=== PATIENT | male | born 1945 | race Caucasian/White ===

== ENCOUNTER 2017-02-28 21:26 | Observation (INO) | payer MEDICARE, BC ==
[~2017-02-28] VITALS: Ht 185.4 cm; Wt 94.1 kg
--- NOTE | ~2017-02-28 | PRO ---
PATIENT:ISRAEL JAMES MEDICAL RECORD: [id number] : 47 LOCATION:D.M2 D.2132 ADMISSION DATE: 02/28/17 PROCEDURE PERFORMED BY: NATHALIA ESPAÑA MD DATE OF PROCEDURE: 03/01/17 PROCEDURES: 1. PTCA and stent of the RCA. 2. Left heart catheterization. 3. Selective coronary angiography. 4. Left ventriculogram. INDICATIONS: Non Q wave myocardial infarction. PROCEDURE IN DETAIL: After informed consent was obtained and after detailed explanation of risks, benefits as well as alternative therapies, the patient elected to proceed with angiogram and angioplasty. The right radial area was prepped and draped in normal sterile fashion. The right radial artery was cannulated via modified Seldinger technique with placement of 6-Andorran sheath. All catheters exchanged through this sheath. FINDINGS: Left ventricular size is within normal limits. Left ventricular systolic function is preserved at 50%. Selective coronary angiography: 1. Left main showed no significant angiographic disease. 2. Left anterior descending artery has a 95% stenosis proximally and a 95% stenosis in the mid vessel. 3. Left circumflex has irregularities, but no significant stenosis. 4. Right coronary artery has a 95-99% stenosis in the mid vessel. PTCA STENT OF THE RIGHT CORONARY: This lesion was a 4.0 vessel at 20 millimeters long, DAYA grade 2 flow initially. It was addressed with a 4.0 x 24 millimeter BioFreedom stent resulting with 0% residual stenosis and episcopalian of DAYA grade 3 flow. IMPRESSION: Successful PTCA and stenting of the RCA going from 95% initially stenosis to 0% residual. NATHALIA ESPAÑA MD CC: [id number] DICTATION DATE: 03/01/17 1202 HUMANITIES INSTRUCTOR: TC 03/05/17 1201 DIS IN 03/02/17 [facility] [address] [id number]
--- NOTE | ~2017-02-28 | HP ---
PATIENT: ISRAEL JAMES MEDICAL RECORD: [id number] ACCOUNT: [id number] LOCATION:[address] : 47 ADMISSION DATE: 02/28/17 HISTORY AND PHYSICAL EXAMINATION ADMISSION DIAGNOSIS: 1. Non Q wave myocardial infarction. 2. Coronary artery disease. 3. Hypertension. 4. Hyperlipidemia. HISTORY OF PRESENT ILLNESS: The patient presents with anginal symptomatology to [facility] emergency room and was found to have a mildly elevated troponin compatible with a non Q wave myocardial infarction. His chest pain had started over the past two days. It is associated with shortness of breath and dyspnea on exertion. He has no cardiovascular history. PHYSICAL EXAMINATION: HEAD, EYES, EARS, NOSE, AND THROAT: Benign. NECK: Supple. No jugular venous distention. Carotid upstroke plus two bilaterally without bruits. LUNGS: Overall clear to auscultation and percussion. HEART: Regular. Normal S1, normal S2. No S3, no S4. No murmurs. BONES, JOINTS, EXTREMITIES: No clubbing, cyanosis, or edema.. OVERALL IMPRESSION: Unstable angina with non Q wave myocardial infarction. No doubt he has hemodynamically significant coronary disease. We will proceed with coronary angiography. Further care dependent on findings on the angiography. NATHALIA ESPAÑA MD CC: [id number] DICTATION DATE: 03/01/171211 EXPANSION ENVELOPE MAKER HAND: APRIL 03/05/17 121 DIS IN 03/02/17 [facility] [address] [place] [address]
--- NOTE | ~2017-02-28 | HEMODYNAMI ---
PATIENT:ISRAEL JAMES MEDICAL RECORD: [id number] : 47 [id number] ADMISSION DATE: 02/28/17 Generatedon:03/02/201712:00 Patient name: ISRAEL JAMES Patient #: [id number] : 1945 Date of study: 03/02/2017 Page: Of Hemodynamic Procedure Report Patient Data Patient Demographics Procedure consent was obtained First Name: ISRAEL Gender: Male Last Name: JACOB : 1945 Middle Initial: D Age: 71 year(s) Patient #: [id number] Race: Unknown SSN: [id number] Additional ID: [id number] Contact details Address: [place] [address] State: [place] City: [place] Zip code: [address] Past Medical History Allergies Allergen Reaction Date Comments Reported Other allergy 03/01/2017 Lidocaine, Iodine, PCN Iodine 03/02/2017 Penicillins 03/02/2017 Other allergy 03/02/2017 Lidocaine Admission Admission Data Admission Date: 02/28/2017 Admission Time: 21:26 Arrival Date: 03/01/2017 Arrival Time: 0:00 Admit Source: Other Insurance Payor: Medicare, Room #: D.2132 Private health insurance Height (in.): 73 BSA: 2.2 (m2) Height (cm.): 185.42 BMI: 27.76 (kg/m2) Weight (lbs.): 210.43 Weight (kg.): 95.45 Lab Results Lab Result Date: 03/01/2017 Lab Result Time: 0:00 Biochemistry Name Units Result Min Max CK-MB ng/ml 1.2 --(-*--)-- 0 3.6 Creatinine l 33 --(*---)-- 21 215 Kinase CBC Name Units Result Min Max Hemoglobin g/dl 14.7 --(-*--)-- 13.5 17.5 Procedure Procedure Types Cath Procedure PCI Procedure Coronary Stent Initial Miscellaneous Procedures Moderate Sedation up to 45 minutes Procedure Description Procedure Date Procedure Date: 03/02/2017 Procedure Start Time: 11:29 Procedure End Time: 12:00 Procedure Staff Name Function Moses Shepard MD Performing Physician Joan Pham RT Scrub Gino Henry RN Nurse Christy Rico RT Monitor Tuan Lopez RN Scientific Systems Analyst Procedure Data Cath Procedure Fluoroscopy Diagnostic fluoroscopy Total fluoroscopy Time: 7.9 time: 7.9 min min Diagnostic fluoroscopy Total fluoroscopy dose: 643 dose: 643 mGy mGy Contrast Material Contrast Material Type Amount (ml) Isovue 300 134 Entry Location Entry Primary Successful Side Size Upsize Upsize Entry Closure Succes sful Closure Location (Fr) 1 (Fr) 2 (Fr) Remarks Device Remarks Femoral Right 6 Fr Exoseal artery Short Estimated blood loss: 10 ml Procedure Complications No complications Procedure Medications Medication Administration Route Dosage Oxygen NC 2 l/min Heparin Flush Bag added to field 2 bags (1000units/500ml NS) 0.9% NaCl I.V. 100 ml/hr Versed I.V. 1 mg Fentanyl I.V. 50 mcg Versed I.V. 1 mg Fentanyl I.V. 50 mcg Versed I.V. 1 mg Fentanyl I.V. 50 mcg Heparin Bolus I.V. 4000 units Versed I.V. 1 mg Fentanyl I.V. 50 mcg Integrilin (Bolus I.V. 8.5 ml 2mg/ml) Versed I.V. 1 mg Morphine I.V. 2 mg Morphine I.V. 2 mg Fentanyl I.V. 50 mcg Zofran I.V. 4 mg Hemodynamics Rest BSA: 2.2 (m2) HGB: 14.7 (g/dl) O2 Consumption: Estimated: 249.77 (ml/min) O2 Con sumption indexed: Estimated:113.53 (ml/min/m) Heart Rate: 64 (bpm) Snapshots Pre Cath Intra NCS Post Cath Vital Signs Time Heart Resp SPO2 etCO2 [id number] NIBP (mmHg) Rhythm Pain Status S edation Rate (ipm) (%) (mmHg) (mmHg) Level (bpm) 10:51:28 69 20 96 0 0 161/93(138) NSR 0 (11) , No 1 0(A) pain 10:55:48 64 20 96 0 0 152/89(127) NSR 0 (11) , No 1 0(A) pain 11:00:04 69 19 95 0 0 145/89(119) NSR 0 (11) , No 1 0(A) pain 11:04:14 75 18 95 0 0 148/96(125) NSR 0 (11) , No 1 0(A) pain 11:08:30 72 17 94 0 0 151/84(119) NSR 0 (11) , No 1 0(A) pain 11:12:48 69 16 94 0 0 142/84(118) NSR 0 (11) , No 1 0(A) pain 11:17:02 73 16 93 0 0 139/84(104) NSR 0 (11) , No 1 0(A) pain 11:21:14 75 17 93 0 0 146/88(121) NSR 0 (11) , No 1 0(A) pain 11:25:28 73 16 93 0 0 144/87(110) NSR 0 (11) , No 9 (A) pain 11:29:42 78 16 94 0 0 146/86(124) NSR 0 (11) , No 9 (A) pain 11:33:56 79 15 94 0 0 150/87(127) NSR 0 (11) , No 9 (A) pain 11:38:55 92 17 95 0 0 Measuring NSR 0 (11) , No 9 (A) pain 11:39:09 86 17 95 0 0 186/114(142) NSR 0 (11) , No 9 (A) pain 11:43:31 86 16 96 0 0 183/112(149) NSR 2 (11) , 1 0(A) Uncomfortable 11:47:52 79 18 96 0 0 170/110(146) NSR 6 (11) , 1 0(A) Intense 11:52:12 76 16 96 0 0 150/96(131) NSR 8 (11) , 1 0(A) Utterly horrible 11:56:26 71 16 93 0 0 145/93(122) NSR 5 (11) , Very 1 0(A) distressing 12:00:38 77 16 93 0 0 161/97(136) NSR 5 (11) , Very 1 0(A) distressing Medications Time Medication Route Dose Verified Delivered Reason Notes Effectiveness by by 10:59:38 Oxygen NC 2 Moses Buffie used for l/min Drea Henry RN procedure 10:59:53 Heparin Flush added 2 Moses Moses used for Bag to bags Drea Shepard MD procedure (1000units/500ml field NS) 11:00:04 0.9% NaCl I.V. 100 Moses Buffie Per physician ml/hr Drea Henry RN 11:12:47 Versed I.V. 1 mg Moses Buffie for sedation Drea Henry RN 11:12:53 Fentanyl I.V. 50 Moses Buffie for sedation mcg Drea Henry RN 11:17:02 Versed I.V. 1 mg Moses Buffie for sedation Drea Henry RN 11:17:06 Fentanyl I.V. 50 Moses Buffie for sedation mcg Drea Henry RN 11:28:31 Versed I.V. 1 mg Moses Buffie for sedation Drea Henry RN 11:28:36 Fentanyl I.V. 50 Moses Buffie for sedation mcg Drea Henry RN 11:32:06 Heparin Bolus I.V. 4000 Moses Buffie for verifi ed units Drea Henry RN anticoagulation with dr shepard 11:36:16 Versed I.V. 1 mg Moses Buffie for sedation Drea Henry RN 11:36:19 Fentanyl I.V. 50 Moses Buffie for sedation mcg Drea Henry RN 11:38:38 Integrilin I.V. 8.5 Moses Buffie for wasted (Bolus 2mg/ml) ml Drea Henry RN antiplatelet 1.5mL of therapy integrilin bolus 11:40:19 Versed I.V. 1 mg Moses Buffie for sedation Drea Henry RN 11:47:45 Morphine I.V. 2 mg Moses Buffie for chest pain Drea Henry RN 11:50:34 Morphine I.V. 2 mg Moses Buffie for chest pain Drea Henry RN 11:54:11 Fentanyl I.V. 50 Moses Buffie for chest pain mcg Drea Henry RN 11:55:53 Zofran I.V. 4 mg Moses Gonzalesie for nausea Drea Henry RN Procedure Log Time Note 10:20:06 Tuan Lopez RN sent for patient. Start room use. 10:46:02 Patient Height : 73 cm 10:46:02 Patient Weight : 210.43 kg 10:46:11 Time tracking: Regular hours 10:46:14 Plan of Care:Hemodynamics will remain stable., Cardiac rhythm will remain stable., Comfort level will be maintained., Respiratory function will remain adequate., Patient/ family verbilizes understanding of procedure., Procedure tolerated without complication., Recovers from procedure without complications.. 10:46:36 Patient received from PCU to CCL 1 Alert and oriented. Tansferred to table in Supine position. 10:46:37 Warm blankets applied, and kj hugger turned on for patient comfort. 10:46:38 Correct patient and procedure confirmed by team. 10:46:39 Signed procedure consent form obtained from patient. 10:46:40 ECG and BP/O2 sat monitors applied to patient. 10:46:41 Full Disclosure recording started 10:50:20 Vital chart was started 10:52:48 Baseline sample Acquired. 10:52:51 Rhythm: sinus rhythm 10:53:02 H&P Date Dictated: 03/01/2017 Within 30 days and on chart., H&P Addendum completed by physician on day of procedure. (MUST COMPLETE FOR ALL OUTPATIENTS). 10:53:03 Pre-procedure instructions explained to patient. 10:53:04 Pre-op teaching completed and patient verbalized understanding. 10:53:05 Family in waiting room. 10:53:07 Patient NPO since Midnight. 10:53:24 Patient allergic to Iodine 10:53:28 Patient allergic to Penicillins 10:53:45 Patient allergic to Other allergyLidocaine 10:53:52 Is the patient allergic to Iodine/contrast media? Yes. 10:53:58 Was the patient premedicated? Yes 10:54:00 Is patient on blood thinner?Yes 10:54:03 ACC The patient was administered the following blood thiners within the last 24 hours: ACCPlavix 10:54:30 Patient diabetic? No. 10:54:33 Previous problem with sedation/anesthesia? No ? 10:54:35 Snore? Yes 10:54:36 Sleep apnea? No 10:54:37 Deviated septum? No 10:54:38 Opens mouth fully? Yes 10:54:38 Sticks out tongue? Yes 10:54:41 Airway obstruction? No ? 10:54:45 Dentures? Yes OUT 10:54:49 Pre procedure: right dorsailis pedis pulse 2+ Normal; easily identifiable; not easily obliterated 10:54:52 Patient pain scale 0/10 ?. 10:54:58 IV patent on arrival in right hand with 0.9% NaCl at O. 10:55:08 Lab results completed and on chart. 10:55:11 Right groin area was prepped with chlora-prep and draped in sterile fashion 10:55:12 Alarms reviewed by R. N. 10:55:13 Sharps counted by scrub and verified by R.N. 10:55:58 Use device set Femoral PCI 10:55:59 Acist Syringe opened to sterile field. 10:55:59 Acist Hand Control opened to sterile field. 10:55:59 Bag Decanter opened to sterile field. 10:56:00 Medline Cath Pack opened to sterile field. 10:56:00 Terumo 6Fr Golden Gate Sheath opened to sterile field. 10:56:00 St Mauri 260cm J .035 wire opened to sterile field. 10:56:01 Merit BasixCompak Inflation Kit opened to sterile field. 10:56:01 Acist Manifold opened to sterile field. 10:56:01 Tegaderm 4 x 4 opened to sterile field. 10:59:38 Oxygen 2 l/min NC was administered by Gino Henry RN; used for procedure; 10:59:53 Heparin Flush Bag (1000units/500ml NS) 2 bags added to field was administered by Moses Shepard MD; used for procedure; 11:00:04 0.9% NaCl 100 ml/hr I.V. was administered by Gino Henry RN; Per physician; 11:00:10 Rosen Whisper J 300cm 0.014 guide wire opened to sterile field. 11:11:12 Final Timeout: patient, procedure, and site verified with staff and physician. All members of the team are in agreement. 11:11:16 Right groin site verified by team. 11:11:21 Physical assessment completed. ASA score P 3 - A patient with severe systemic disease as per Moses Shepard MD. 11:11:24 Sedation plan: IV Moderate Sedation Versed, Fentanyl 11:12:47 Versed 1 mg I.V. was administered by Buffie Henry RN; for sedation; 11:12:53 Fentanyl 50 mcg I.V. was administered by Gino Henry RN; for sedation; 11:17:02 Versed 1 mg I.V. was administered by Gino Henry RN; for sedation; 11:17:06 Fentanyl 50 mcg I.V. was administered by iGno Henry RN; for sedation; 11:28:31 Versed 1 mg I.V. was administered by Gino Henry RN; for sedation; 11:28:36 Fentanyl 50 mcg I.V. was administered by Gino Henry RN; for sedation; 11:29:08 Procedure started. 11:29:14 Local anesthetic to right femoral artery with Lidocaine 2% by Moses Shepard MD.INITIAL ACCESS ONLY 11:29:54 A 6 Fr Short sheath was inserted into the Right Femoral artery 11:30:06 Cordis 6FR XBLAD 4.0 guide catheter opened to sterile field. 11:30:47 6 Fr XBLAD 4.0 guide catheter was inserted over the wire 11:31:33 Whisper wire advanced. 11:32:06 Heparin Bolus 4000 units I.V. was administered by Gino Henry RN; for anticoagulation; verified with dr shepard 11:32:44 Inflation number: 1 A [place] Sci [place] 2.5 X 15 balloon was prepped and advanced across the Prox LAD, then inflated to 9 MIGUEL for 0:05 (min:sec). 11:33:02 Inflation number: 2 The [place] Sci [place] 2.5 X 15 balloon was reinflated across the Prox LAD, to 13 MIGUEL for 0:07 (min:sec). 11:36:16 Versed 1 mg I.V. was administered by Gino Henry RN; for sedation; 11:36:19 Fentanyl 50 mcg I.V. was administered by Gino Henry RN; for sedation; 11:36:49 Wire redirected to Diag. 11:37:03 Inflation number: 3 The [place] Sci [place] 2.5 X 15 balloon was reinflated across the Prox LAD, to 3 MIGUEL for 0:05 (min:sec). 11:38:38 Integrilin (Bolus 2mg/ml) 8.5 ml I.V. was administered by Gino Henry RN; for antiplatelet therapy; wasted 1.5mL of integrilin bolus 11:38:47 Balloon removed over the wire. 11:39:19 Inflation Number: 1 A Biofreedom 2.5 x 18 stent (No Cost Implant) was prepped and advanced across the Mid LAD. The stent was deployed at 7 MIGUEL for 0:06 (min:sec). 11:39:52 Stent catheter was removed intact over wire. 11:40:19 Versed 1 mg I.V. was administered by Gino Henry RN; for sedation; 11:40:54 Inflation Number: 4 A Biofreedom 3.5 x 14 stent (No Cost Implant) was prepped and advanced across the Prox LAD. The stent was deployed at 11 MIGUEL for 0:06 (min:sec). 11:41:19 Stent catheter was removed intact over wire. 11:41:20 Wire removed. 11:41:20 Guide catheter removed. 11:41:34 Sheath removed intact; hemostasis achieved with Exoseal to the Right Femoral artery. 11:41:56 Cordis 6Fr Exoseal opened to sterile field. 11:42:40 Procedure ended.(Physican Out) 11:43:17 Fluoroscopy time 07.90 minutes. 11:43:21 Flurop Dose total: 643 11:43:21 Fluoroscopy dose: 643 mGy 11:43:32 Contrast amount:Isovue 300 134ml. 11:43:34 Sharps counted by scrub and verified by R.N. 11:43:37 Insertion/operative site no bleeding no hematoma. 11:43:41 Post-op/insertion site Right Femoral artery dressed using a 4 x 4 and Tegaderm. 11:43:46 Post right femoral artery:stable, clean and dry 11:47:45 Morphine 2 mg I.V. was administered by Gino Henry RN; for chest pain; 11:49:03 Post Procedure Pulses reassessed and unchanged 11:49:07 Post-procedure physical assessment completed. ASA score P 3 - A patient with severe systemic disease as per Moses Shepard MD. 11:49:09 Post procedure rhythm: unchanged. 11:49:12 Estimated blood loss: 10 ml 11:49:15 Post procedure instruction explained to patient.Patient verbalizes understanding. 11:49:15 Patient needs reinforcement of post procedure teaching. 11:49:33 Procedure type changed to Cath procedure, PCI procedure, Coronary Stent Initial, Miscellaneous Procedures, Moderate Sedation up to 45 minutes 11:49:40 Procedure Complication : No complications 11:49:43 See physician's report for complete and final results. 11:50:34 Morphine 2 mg I.V. was administered by Gino Henry RN; for chest pain; 11:52:37 Procedure and supply charges have been captured, reviewed, submitted and are correct. 11:52:45 Report given to PCU. 11:54:11 Fentanyl 50 mcg I.V. was administered by Gino Henry RN; for chest pain; 11:55:53 Zofran 4 mg I.V. was administered by Gino Henry RN; for nausea; 12:00:25 Vital chart was stopped 12:00:26 Patient transfered to PCU with Bed. 12:00:34 Procedure ended. 12:00:34 Full Disclosure recording stopped 12:00:37 End room use (Document Last) Intervention Summary Intervention Notes Time ActionType Lesion and Equipment Action# Pressure Duration Attributes Used 11:32:44 Inflate Prox LAD [place] Sci 1 9 00:05 balloon [place] 2.5 X 15 balloon 11:33:02 Reinflate Prox LAD [place] Sci 2 13 00:07 balloon [place] 2.5 X 15 balloon 11:37:03 Reinflate Prox LAD [place] Sci 3 3 00:05 balloon [place] 2.5 X 15 balloon 11:39:19 Place stent Mid LAD Biofreedom 1 7 00:06 2.5 x 18 stent (No Cost Implant) 11:40:54 Place stent Prox LAD Biofreedom 4 11 00:06 3.5 x 14 stent (No Cost Implant) Device Usage Item Name Manufacture Quantity Catalog Number [facility] Part Current [facility] Lot# / Charge Number Stock Stock Serial# Code Acist Acist 1 [id number] 802375 098719 20 Syringe Medical Systems Inc Acist Hand Acist 1 83801 098694 874923 134692 5 Control Medical Systems Inc Bag Microtek 1 2002S 066361 94710 052144 5 Vertishear. Medline Cardinal 1 [id number] 409092 31845 254823 5 Rallyware Terumo 6Fr Terumo 1 [id number] 675423 848056 534498 [address] St Mauri 1 064640 084205 476041 237358 30 260cm J .035 wire Merit Merit 1 [id number] 795560 470190 622732 15 BasixCompak Medical Inflation Kit Acist Acist 1 92808 085008 050552 574026 5 RoverTown Systems Inc Tegaderm 4 3M 1 1626W 979828 267657 448136 5 x 4 Rosen Rosen 1 [id number] 657641 080904 867688 5 Whisper J Vascular 300cm 0.014 guide wire Cordis 6FR Cardinal 1 [id number] 983257 019433 849362 3 XBLAD 4.0 Health guide catheter Eving[place] Sci E[place] 1 [id number] 876891 868040 736648 1 [id number] Sunsea 2.5 X 15 balloon Biofreedom Biosensors 1 [facility]2-2518 363209 613699 5 [id number] 2.5 x 18 [place] SA stent (No Cost Implant) Biofreedom Biosensors 1 [facility]2-3514 299361 752892 5 [id number] 3.5 x 14 [place] SA stent (No Cost Implant) Cordis 6Fr Cardinal 1 [id number] 520947 018705 505879 10 [facility] STAR FESTIVAL Signature Audit Bee Spring Stage Time Signature Unsigned Intra-Procedure 03/02/2017 Christy 12:00:48 PM Counts RT(R) Signatures Monitor : Christy Signature : Counts RT Date : Time : [address] [place] [address]
--- NOTE | ~2017-02-28 | HEMODYNAMI ---
PATIENT:ISRAEL JAMES MEDICAL RECORD: [id number] : 47 LOCATION:[facility] D213[facility]# [id number] ADMISSION DATE: 02/28/17 Generatedon:03/01/201712:26 Patient name: ISRAEL JAMES Patient #: [id number] : 1945 Date of study: 03/01/2017 Page: Of Hemodynamic Procedure Report Patient Data Patient Demographics Procedure consent was obtained First Name: ISRAEL Gender: Male Last Name: JACOB : 1945 Middle Initial: D Age: 71 year(s) Patient #: [id number] Race: Unknown SSN: [id number] Additional ID: [id number] Contact details Address: [address] [address] State: [place] City: [place] Zip code: [address] Past Medical History Allergies Allergen Reaction Date Comments Reported Other allergy 03/01/2017 Lidocaine, Iodine, PCN Admission Admission Data Admission Date: 02/28/2017 Admission Time: 21:26 Arrival Date: 03/01/2017 Arrival Time: 0:00 Admit Source: Other Insurance Payor: Medicare, Room #: D.2132 Private health insurance Height (in.): 73 BSA: 2.2 (m2) Height (cm.): 185.42 BMI: 27.76 (kg/m2) Weight (lbs.): 210.43 Weight (kg.): 95.45 Lab Results Lab Result Date: 03/01/2017 Lab Result Time: 0:00 Biochemistry Name Units Result Min Max CK-MB ng/ml 1.2 --(-*--)-- 0 3.6 Creatinine l 33 --(*---)-- 21 215 Kinase CBC Name Units Result Min Max Hemoglobin g/dl 14.7 --(-*--)-- 13.5 17.5 Procedure Procedure Types Cath Procedure Diagnostic Procedure LHC LHC w/Coronaries PCI Procedure Coronary Stent Initial Miscellaneous Procedures Moderate Sedation up to 15 minutes Procedure Description Procedure Date Procedure Date: 03/01/2017 Procedure Start Time: 12:09 Procedure End Time: 12:23 Procedure Staff Name Function Moses Shepard MD Performing Physician Scotty Pino RT Scrub Gino Henry RN Nurse Joan Pham RT Monitor Procedure Data Cath Procedure Fluoroscopy Diagnostic fluoroscopy Total fluoroscopy Time: 3 time: 3 min min Diagnostic fluoroscopy Total fluoroscopy dose: 676 dose: 676 mGy mGy Contrast Material Contrast Material Type Amount (ml) Isovue 300 99 Entry Location Entry Primary Successful Side Size Upsize Upsize Entry Closure Oscar ccessful Closure Location (Fr) 1 (Fr) 2 (Fr) Remarks Device Remarks Radial Right 6 Fr Mechanical TR band artery Short Compression Estimated blood loss: 10 ml Diagnostic catheters Device Type Used For End Catheter Placement Diagnostic Terumo 5Fr LV Angiography Berlin 110cm catheter Procedure Complications No complications Procedure Medications Medication Administration Route Dosage Oxygen NC 2 l/min Heparin Flush Bag added to field 2 bags (1000units/500ml NS) 0.9% NaCl I.V. 100 ml/hr Versed I.V. 1 mg Fentanyl I.V. 50 mcg Radial Cocktail I.A. 1 syringe (Verapomil 2mg/Nitro 400mcg/Heparin 1500units) Versed I.V. 1 mg Fentanyl I.V. 50 mcg Versed I.V. 1 mg Fentanyl I.V. 50 mcg Heparin Bolus I.V. 4000 units Hemodynamics Rest BSA: 2.2 (m2) HGB: 14.7 (g/dl) O2 Consumption: Estimated: 248.82 (ml/min) O2 Con sumption indexed: Estimated:113.1 (ml/min/m) Heart Rate: 63 (bpm) Pressure Samples Time Site Value (mmHg) Purpose Heart Use Rate(bpm) 12:11 LV 87/-1,12 Snapshot 98 12:11 LV 125/-10,7 Snapshot 98 12:11 AO 122/79(97) Pullback 76 12:11 LV 125/12,31 Pullback 76 Gradients Valve Time Site 1 Site 2 Mean SEP/DFP Peak To Heart Use (mmHg) (sec/min) Peak Rate (mmHg) (bpm) Aortic 12:11 LV AO 2 9 3 76 125/12,31 122/79(97) Calculations Valve P-P Mean Valve Index Valve Source Name Gradient Area Flow (cm2) Aortic 3 2 3 2 Snapshots Pre Cath Intra NCS Post Cath Vital Signs Time Heart Resp SPO2 etCO2 WD6ykil NIBP (mmHg) Rhythm Pain Sedation Rate (ipm) (%) (mmHg) (mmHg) Status Level (bpm) 11:52:17 64 16 94 0 0 138/84(115) NSR 0 (11) 10(A) , No pain 11:56:33 63 22 94 0 0 139/81(111) NSR 0 (11) 10(A) , No pain 12:00:47 64 17 95 0 0 141/82(112) NSR 0 (11) 10(A) , No pain 12:05:01 66 18 93 0 0 137/87(109) NSR 0 (11) 10(A) , No pain 12:09:17 67 16 93 0 0 133/80(112) NSR 0 (11) 9(A) , No pain 12:13:25 77 17 94 0 0 126/77(96) NSR 0 (11) 9(A) , No pain 12:17:35 78 18 93 0 0 134/81(98) NSR 0 (11) 9(A) , No pain 12:21:47 75 16 94 0 0 136/83(114) NSR 0 (11) 9(A) , No pain 12:24:59 77 18 94 0 0 146/85(108) NSR 0 (11) 10(A) , No pain Medications Time Medication Route Dose Verified Delivered Reason Note s Effectiveness by by 11:56:09 Oxygen NC 2 l/min Moses Christian used for Drea Henry RN procedure 11:56:35 Heparin Flush added 2 bags Moses Christian used for Bag to Drea Henry RN procedure (1000units/500ml field NS) 11:57:14 0.9% NaCl I.V. 100 Moses Christian Per physician ml/hr Drea Henry RN 12:08:50 Versed I.V. 1 mg Moses Christian for sedation Drea Henry RN 12:08:56 Fentanyl I.V. 50 mcg Moses Christian for sedation Drea Henry RN 12:10:53 Radial Cocktail I.A. 1 Moses Lopes for (Verapomil syringe Drea Shepard MD vasodilation 2mg/Nitro 400mcg/Heparin 1500units) 12:10:57 Versed I.V. 1 mg Gino Lopes for sedation Elaine Shepard MD 12:11:01 Fentanyl I.V. 50 mcg Moses Christian for sedation Drae Henry RN 12:13:54 Heparin Bolus I.V. 4000 Gino Christian for veri fied units Elaine Henry RN anticoagulation with dr shepard 12:15:03 Versed I.V. 1 mg Gino Lopes for sedation Elaine Shepard MD 12:15:08 Fentanyl I.V. 50 mcg Gino Lopes for sedation Elaine Shepard MD Procedure Log Time Note 11:31:41 Patient Height : 73 cm 11:31:48 Patient Weight : 210.43 kg 11:31:56 Arrival Date: 03/01/2017 12:00:00 AM 11:32:00 Admit Source: Other 11:32:01 Scotty Pino RT(R) (CV) sent for patient. Start room use. 11:32:20 Insurance Payor : Private health insurance, Medicare 11:33:41 Lab Result : Creatinine Kinase 33 l 11:33:41 Lab Result : CK-MB 1.2 ng/ml 11:33:41 Lab Result : Hemoglobin 14.7 g/dl 11:34:04 Diagnostic Cath Status : Elective 11:51:05 Vital chart was started 11:56:09 Oxygen 2 l/min NC was administered by Gino Henry RN; used for procedure; 11:56:19 Time tracking: Regular hours 11:56:23 Plan of Care:Hemodynamics will remain stable., Cardiac rhythm will remain stable., Comfort level will be maintained., Respiratory function will remain adequate., Patient/ family verbilizes understanding of procedure., Procedure tolerated without complication., Recovers from procedure without complications.. 11:56:30 Patient received from Med II to CCL 1 Alert and oriented. Tansferred to table in Supine position. 11:56:31 Warm blankets applied, and kj hugger turned on for patient comfort. 11:56:32 Correct patient and procedure confirmed by team. 11:56:34 Signed procedure consent form obtained from patient. 11:56:35 Heparin Flush Bag (1000units/500ml NS) 2 bags added to field was administered by Gino Henry RN; used for procedure; 11:56:35 ECG and BP/O2 sat monitors applied to patient. 11:56:36 Baseline sample Acquired. 11:56:41 Rhythm: sinus rhythm 11:56:43 Full Disclosure recording started 11:56:51 H&P Date Dictated: 02/28/2017 Within 30 days and on chart.. 11:57:01 Pre-procedure instructions explained to patient. 11:57:03 Pre-op teaching completed and patient verbalized understanding. 11:57:05 Family in waiting room. 11:57:09 Patient NPO since Midnight. 11:57:14 0.9% NaCl 100 ml/hr I.V. was administered by Gino Henry RN; Per physician; 11:57:34 Patient allergic to Other allergyLidocaine, Iodine, PCN 11:57:37 Is the patient allergic to Iodine/contrast media? Yes. 11:57:40 Was the patient premedicated? Yes 11:57:51 Is patient on blood thinner?Yes 11:57:54 ACC The patient was administered the following blood thiners within the last 24 hours: ACCPlavix 11:57:57 Patient diabetic? Yes. 11:58:00 If diabetic: On Metformin? Yes 11:58:03 If on Metformin: Last Dose? 02/27/2017 11:58:09 Snore? Yes 11:58:11 Sleep apnea? No 11:58:22 Airway obstruction? No ? 11:58:32 Dentures? Yes in tight 11:58:43 IV patent on arrival in right hand with 0.9% NaCl at [facility]. 11:58:58 Lab results completed and on chart. 11:59:02 Right Radial & Right Groin area was prepped with chlora-prep and draped in sterile fashion 11:59:04 Alarms reviewed by R. N. 11:59:04 Sharps counted by scrub and verified by R.N. 11:59:05 Physician paged 11:59:06 Physician responded to page. 12:05:45 Zero performed for pressure channel P1 12:06:44 Physician arrived 12:07:36 --------ALL STOP TIME OUT------ 12:07:37 Final Timeout: patient, procedure, and site verified with staff and physician. All members of the team are in agreement. 12:07:39 Right Radial & Right Groin site verified by team. 12:07:43 Physical assessment completed. ASA score P 3 - A patient with severe systemic disease as per Moses Shepard MD. 12:07:48 Sedation plan: IV Moderate Sedation Versed, Fentanyl 12:08:09 Use device set Radial Dx 12:08:10 Acist Syringe opened to sterile field. 12:08:10 Medline Cath Pack opened to sterile field. 12:08:11 Bag Decanter opened to sterile field. 12:08:11 Terumo 6Fr Slender Glidesheath opened to sterile field. 12:08:12 St Mauri 260cm J .035 wire opened to sterile field. 12:08:12 Acist Hand Control opened to sterile field. 12:08:13 Acist Manifold opened to sterile field. 12:08:13 Tegaderm 4 x 4 opened to sterile field. 12:08:50 Versed 1 mg I.V. was administered by Gino Henry RN; for sedation; 12:08:56 Fentanyl 50 mcg I.V. was administered by Gino Henry RN; for sedation; 12:09:41 Procedure started. 12:10:19 A 6 Fr Short sheath was inserted into the Right Radial artery 12:10:40 A Diagnostic Terumo 5Fr Berlin 110cm catheter was advanced over the wire and used for LV Angiography. 12:10:48 J wire advanced. 12:10:52 LV angiography performed. 12:10:53 Radial Cocktail (Verapomil 2mg/Nitro 400mcg/Heparin 1500units) 1 syringe I.A. was administered by Moses Shepard MD; for vasodilation; 12:10:57 Versed 1 mg I.V. was administered by Moses Shepard MD; for sedation; 12:11:01 Fentanyl 50 mcg I.V. was administered by Gino Henry RN; for sedation; 12:11:51 EF : 60 % 12:11:58 LCA angiography performed. 12:12:51 RCA angiography performed. 12:13:43 Zigfutronic Launcher 6Fr AR 2.0 guide catheter opened to sterile field. 12:13:44 Kaiima BasixCompak Inflation Kit opened to sterile field. 12:13:45 Rosen Whisper J 300cm 0.014 guide wire opened to sterile field. 12:13:54 Heparin Bolus 4000 units I.V. was administered by Gino Henry RN; for anticoagulation; verified with dr shepard 12:13:54 Catheter removed. 12:14:09 ACC PCI Site: mRCA has 95% stenosis. 12:14:19 6 Fr AR 2 guide catheter was inserted over the wire 12:14:25 Whisper wire advanced. 12:15:03 Versed 1 mg I.V. was administered by Moses Shepard MD; for sedation; 12:15:07 Wire advanced across lesion. 12:15:08 Fentanyl 50 mcg I.V. was administered by Moses Shepard MD; for sedation; 12:18:27 Inflation Number: 1 A Biofreedom 4.0 X 24 stent (No Cost Implant) was prepped and advanced across the Mid RCA. The stent was deployed at 13 MIGUEL for 0:09 (min:sec). 12:18:55 Stent catheter was removed intact over wire. 12:20:58 Terumo TR Band Standard opened to sterile field. 12:21:02 Wire removed. 12:21:02 Guide catheter removed. 12:21:18 Sheath removed intact; hemostasis achieved with Mechanical Compression to the Right Radial artery. 12:21:22 Procedure ended.(Physican Out) 12:21:35 Fluoroscopy time 03.00 minutes. 12:21:40 Fluoroscopy dose: 676 mGy 12:21:40 Flurop Dose total: 676 12:21:43 Contrast amount:Isovue 300 99ml. 12:21:46 Sharps counted by scrub and verified by R.N. 12:21:51 TR band inflated with 10cc of air. 12:21:55 Insertion/operative site no bleeding no hematoma. 12:21:57 Post Procedure Pulses reassessed and unchanged 12:22:01 Post-procedure physical assessment completed. ASA score P 3 - A patient with severe systemic disease as per Moses Shepard MD. 12:22:15 Post procedure rhythm: unchanged. 12:22:18 Estimated blood loss: 10 ml 12:22:20 Post procedure instruction explained to patient.Patient verbalizes understanding. 12:22:36 Procedure type changed to Cath procedure, Diagnostic procedure, LHC, LHC w/Coronaries, PCI procedure, Coronary Stent Initial, Miscellaneous Procedures, Moderate Sedation up to 15 minutes 12:22:37 Procedure and supply charges have been captured, reviewed, submitted and are correct. 12:23:04 Procedure Complication : No complications 12:23:07 Vital chart was stopped 12:23:08 See physician's report for complete and final results. 12:23:13 Report given to [facility]. 12:23:19 Patient transfered to [facility] with Bed. 12:23:22 Procedure ended. 12:23:22 Full Disclosure recording stopped 12:23:26 End room use (Document Last) Intervention Summary Intervention Notes Time ActionType Lesion and Equipment Action# Pressure Duration Attributes Used 12:18:27 Place stent Mid RCA Biofreedom 1 13 00:09 4.0 X 24 stent (No Cost Implant) Device Usage Item Name Manufacture Quantity Catalog Hospital Part Current Minimal Lot# / Number Charge Number Stock Stock Serial# Code Acist Acist 1 45256 585129 557283 487773 20 Syringe Medical Systems Inc Medline Cardinal 1 [id number] 644921 91515 887972 5 Cath Pack Health Bag Microtek 1 2002S 978253 84474 855238 5 LC Style.com Inc. Terumo 6Fr Terumo 1 [id number] 324120 610407 914292 [address] [facility] St Mauri 1 275936 182554 837472 778124 30 260cm J .035 wire Acist Hand Acist 1 40041 626944 482685 610821 5 Unified Social Medical Systems Inc Acist Acist 1 23568 121760 759389 718799 5 Open Labs Medical Systems Inc Tegaderm 4 3M 1 1626W 165133 584218 445725 5 x 4 Diagnostic Terumo 1 40-0943 800481 111143 059520 5 Terumo 5Fr Berlin 110cm catheter Medtronic Medtronic 1 [id number] 014295 99416 088353 1 Launcher 6Fr AR 2.0 guide catheter Merit Merit 1 [id number] 945260 390962 071750 15 BasixCompak Medical Inflation Kit Rosen Rosen 1 [id number] 754601 216102 227529 5 Whisper J Vascular 300cm 0.014 guide wire Biofreedom Biosensors 1 [id number] 290335 432128 5 [id number] 4.0 X 24 Europe SA stent (No Cost Implant) Terumo TR Terumo 1 [id number] 047168 553538 458520 40 Band Standard Signature Audit [place] Stage Time Signature Unsigned Intra-Procedure 03/01/2017 Joan Pham 12:26:27 PM RT(R) Signatures Monitor : Joan Pham Signature : RT Date : Time : [id number] [place] [address]
[2017-02-28 23:03] VITALS: BP 173/101; Ht 185.4 cm; Wt 94.1 kg
[2017-02-28] MEDS ORDERED: VITAMIN B-1000 MCG/M IM (23:08)
[2017-02-28] MEDS ORDERED: BAYER CHEWABLE81 MG PO (23:08)
[2017-02-28] MEDS ORDERED: TIAZAC/CARDIZE240 M1 PO (23:09)
[2017-02-28] MEDS ORDERED: NEURONTIN 400400 MG PO (23:09)
[2017-02-28] MEDS ORDERED: GLUCOPHAGE1000 MG PO (23:10)
[2017-02-28] MEDS ORDERED: OMEPRAZOLE40 MG PO (23:10)
[2017-02-28] MEDS ORDERED: ZESTRIL20 MG PO (23:10)
[2017-02-28] MEDS ORDERED: FLOMAX0.4 MG PO (23:11)
[2017-02-28] MEDS ORDERED: TESTOSTERON200 MG/ML IM (23:11)
[2017-02-28] MEDS ORDERED: LIPITOR10 MG PO (23:11)
[2017-02-28] MEDS ORDERED: CYMBALTA30 MG PO (23:12)
[2017-02-28 23:55] VITALS: BP 154/93
--- NOTE | 2017-03-01 00:37 | NUR ---
BROKERAGE BRANCH MANAGER AT BEDSIDE FOR VS. NEEDS ADDRESSED AT THIS TIME. CALL LIGHT IN REACH. WILL CONT TO MONITOR.
[2017-03-01 03:56] VITALS: BP 132/78
--- NOTE | 2017-03-01 06:29 | NUR ---
RESTING WELL WITH EYES CLOSED, CONT TO MONITOR.
[2017-03-01 07:33] LABS: CKMB 1.2 U/L (0.0-3.6); CREATINE KINASE 33 UL (21-232)
[2017-03-01 07:47] LABS: TROPONIN-I 0.329 ng/mL (0.000-0.060)
[2017-03-01 07:54] LABS: BASOPHILS 0.5 % (0-2); EOSINOPHILS 4.9 % (0-7); HEMATOCRIT 43.9 % (42.0-54.0); HEMOGLOBIN 14.7 g/dL (13.5-17.5); IMMATURE GRANULOCYTES 0.2 % (0-5); LYMPHOCYTES 24.1 % (15-50); MCH 30.4 pg (26.0-34.0); MCHC 33.5 g/dL (31.0-37.0); MCV 90.7 fL (80.0-100.0); MEAN PLATELET VOLUME 11.1 fL (7.4-10.4); MONOCYTES 11.8 % (2-11); NEUTROPHILS 58.5 % (40-80); PLATELET COUNT 144 10x3/uL (130-400); RBC 4.84 10x6/uL (4.20-6.10); WBC 5.9 10x3/uL (4.8-10.8)
[2017-03-01 08:00] VITALS: BP 144/83
[2017-03-01 08:11] LABS: CALC OSMOLALITY 279 mosm/kg (275-300); CALCIUM 8.2 mg/dL (8.5-10.1); CARBON DIOXIDE 27.1 mmol/L (21.0-32.0); CHLORIDE - SERUM 102 mmol/L (98-107); CREATININE - SERUM 0.9 mg/dL (0.6-1.3); GLUCOSE 201 mg/dL (74-106); POTASSIUM - SERUM 3.9 mmol/L (3.5-5.1); SODIUM 137 mmol/L (136-145); UREA NITROGEN 12 mg/dL (7-18); eGFR NON AFRICAN AMERICAN 89 mL/min (90-120)
--- NOTE | 2017-03-01 10:48 | NUR ---
ALERT AND ORIENTED X4. RESTING IN BED. FAMILY AT BEDSIDE. DENIES SOB OR PAIN. CONSENTS FOR EDITOR NEWSPAPER SIGNED ON CHART. BED LOCKED AND LOW. CALL LIGHT IN REACH. TWO SIDERAILS UP. PRE-OP FOR EDITOR NEWSPAPER COMPLETE.
--- NOTE | 2017-03-01 11:39 | NUR ---
TAKEN TO INTERCEPTOR OPERATOR VIA BED. CONTINUE PLAN OF CARE AND SAFETY PRECAUTIONS.
[2017-03-01 11:56] VITALS: BP 134/82
--- NOTE | 2017-03-01 12:30 | NUR ---
ARRIVE BACK TO ROOM VIA BED FROM AUTOMOBILE SERVICE ADVISOR. 1 STENT TO RCA. PLAN TO RETURN 03/02/17 FOR ANOTHER STENT TO LAD. RT WRIST TR-BAND INTACT. NO HEMATOMA. NO BLEEDING. INSTRUCT TO AVOID USING RT HAND. BP-132/75, R-16, P-56 SINUS ANGEL, O2-97% 2L NC. CONTINUE PLAN OF CARE. BED LOCKED AND LOW. CALL LIGHT IN REACH. TWO SIDERAILS UP.
[2017-03-01] MEDS ORDERED: IBUPROFEN800 MG PO (12:31)
--- NOTE | 2017-03-01 17:00 | NUR ---
ALERT AND ORIENTED X4. RESTING IN BED. FAMILY AT BEDSIDE. RT WRIST TR BAND OFF. NO BLEEDING. NO HEMATOMA. DRESSING CLEAN DRY INTACT. CONSENT FOR FIVE ROLL REFINER BATCH MIXER TOMORROW 03/02/17 SIGNED ON CHART. DENIES ANY NEEDS. SINUS ANGEL 59bpm ON TELEMETRY. CONTINUE PLAN OF CARE AND SAFETY PRECAUTIONS.
[2017-03-01 17:48] VITALS: BP 154/90
--- NOTE | 2017-03-01 18:24 | NUR ---
Patient Name: ISRAEL JAMES Admission Status: Elective Accout number: [id number] Admission Date: 02-28-2017 : 1945 Admission Diagnosis: Attending: RADHA Current LOS: 1 Anticipated DC Date: Planned Disposition: Home Primary Insurance: MEDICARE A & B Discharge Planning Comments: CM MET WITH PATIENT TO DISCUSS DISCHARGE PLANNING/NEEDS. PATIENT STATED THAT HE LIVES AT HOME WITH FAMILY. THAT HIS PHYSICAL ADDRESS IS [address] [place] [address]. HE STATED THAT HE WAS INDEPENDENT WITH ALL ADL'S PRIOR TO ADMISSION. HIS PLAN IS TO RETURN TO HIS HOME. HE DENIES ANY NEEDS FOR COMMUNITY RESOURCES. HE IS CURRENTLY ON OXYGEN AT 2L BUT DOES NOT WEAR ANY AT HOME. WILL MONITOR TO SEE IF THERE IS A NEED FOR A WALK TEST. CM WILL CONTINUE TO FOLLOW AND ASSIST NEEDED. Professor Of Genetics: Amanda Persaud Is the patient Alert and Oriented? Yes * How many steps to enter\exit or inside your home? 0 * PCP DR TREJO * Pharmacy [facility] IN [place] * Preadmission Environment Home with Family * ADLs Independent * Equipment None * List name and contact numbers for known caregivers / representatives who currently or will assist patient after discharge: DANE MARIE, DAUGHTER, * Community resources currently utilized None * Additional services required to return to the preadmission environment? No * Can the patient safely return to the preadmission environment? Yes * Has this patient been hospitalized within the prior 30 days at any hospital? No
--- NOTE | 2017-03-01 18:44 | NUR ---
ENTER PREOP MEDICATIONS FOR IODINE ALLERGY PER PROTOCOL.
[2017-03-01 19:00] VITALS: BP 147/88
--- NOTE | 2017-03-01 20:29 | NUR ---
MORPHINE 4 MG GIVEN FOR C/O PAIN TO HEAD, RATES PAIN AT A 7 ON PAIN SCALE. FAMILY AT BED SIDE.
[2017-03-02] VITALS: BP 146/80
--- NOTE | 2017-03-02 03:45 | NUR ---
RESTING WITH EYES CLOSED, RESPERATIONS EVEN, NO S/S DISTRESS NOTED.
[2017-03-02 04:00] VITALS: BP 158/85
--- NOTE | 2017-03-02 07:19 | NUR ---
AM ROUNDS- PT IN BED, ASKING IF HE IS GETTING TO GO HOME TODAY. INFORMED HIM THAT DR. ESPAÑA MIGHT D/C HIM AFTER HE COMES BACK FROM CANNING MACHINE OPERATOR. PT DENIES ANY NEEDS AT THIS TIME. BED LOW AND LOCKED. BEDSIDE RAILS X2. CALL LIGHT IN REACH, NAD NOTED, WILL CONTINUE TO MONITOR.
[2017-03-02 08:00] VITALS: BP 153/92
--- NOTE | 2017-03-02 09:29 | NUR ---
PRE-OP MEDS GIVEN AT THIS TIME, NAD NOTED. PT IN BED, DENIES ANY NEEDS AT THIS TIME. NAD NOTED, FAMILY AT BEDSIDE, WILL CONTINUE TO MONITOR.
[2017-03-02 09:59] LABS: CKMB 0.9 U/L (0.0-3.6); CREATINE KINASE 27 UL (21-232)
[2017-03-02 10:01] LABS: TROPONIN-I 0.161 ng/mL (0.000-0.060)
--- NOTE | 2017-03-02 10:05 | NUR ---
PT TRANSFERED TO LEVERS LACE MACHINE OPERATOR VIA BED, NAD NOTED.
--- NOTE | 2017-03-02 10:41 | NUR ---
PT TRANSFERED TO WASH RACK OPERATOR VIA BED, NAD NOTED.
--- NOTE | 2017-03-02 12:19 | NUR ---
RECEIVED PT BACK TO ROOM 2132, PT LAYING FLAT AT THIS TIME. STATES CHEST PAIN IS GETTING BETTER. NO BLEEDING NOTED TO RT GROIN, SMALL HEMATOMA NOTED, MARKED BY STRIPPER PRELIMINARY NURSE. PT DENIES ANY NEEDS AT THIS TIME. FAMILY AT BEDSIDE, NAD NOTED, WILL CONTINUE TO MONITOR.
[2017-03-02] MEDS ORDERED: PLAVIX75 MG PO (13:04)
--- NOTE | 2017-03-02 13:09 | NUR ---
PER PATIENT REQUEST, PLAVIX 75MG #30 TAKE 1 TAB DAILY WITH ONE REFILL CALLED TO [facility] IN [place]. SPOKE WITH DANIELLE-PHARMACIST.
--- NOTE | 2017-03-02 14:31 | NUR ---
ADMINISTERED 4MG MORPHINE IV PT C/O CHEST PAIN 05/15. PT STATES IT FEELS LIKE INDIGESTION, NAD NOTED. DENIES ANY OTHER CONCERNS AT THIS TIME. CALL LIGHT IN REACH. WILL CONTINUE TO MONITOR.
--- NOTE | 2017-03-02 15:08 | NUR ---
0.1MG OF CLONIDINE GIVEN FOR BP OF 154/102. PT LAYING FLAT, STATES PAIN LEVEL NOW 8/10. PT DENIES ANY OTHER NEEDS AT THIS TIME. CALL LIGHT IN REACH, NAD NOTED, WILL CONTINUE TO MONITOR.
[2017-03-02 15:39] VITALS: BP 155/96
--- NOTE | 2017-03-02 16:08 | NUR ---
PAGED DR. ESPAÑA, WAITING ON HIM TO CALL BACK.
--- NOTE | 2017-03-02 16:50 | NUR ---
PROVIDED VERBAL AND WRITTEN DISCHARGE INSTUCTIONS TO PT AND DAUGTHER AT BEDSIDE, BOTH VERBALIZED UNDERSTANDING REGARDING INSTRUCTIONS GIVEN. D/C RT HAND IV, TIP INTACT. PROVIDED PT WITH PATIENT BELONGING BAG. PT'S O2 93 ON RA.
--- NOTE | 2017-03-02 16:58 | NUR ---
ONE TIME ORDER FOR NORCO 10MG GIVEN AT THIS TIME. PAIN LEVEL AT 3/10. PT GETTING DRESSED, DENIES ANY NEEDS AT THIS TIME. WILL LET US KNOW WHEN READY FOR WHEELCHAIR.
--- NOTE | 2017-03-02 17:15 | NUR ---
PT LEFT UNIT VIA WHEELCHAIR, ACCOMPANIED BY SCOOTER VALDOVINOS NOTED.
== END 2017-03-02 15:17 | disposition home or self-care (01) ==
LOC: D.M2 21:26 → OBSVTIME 03-02 11:48 → D.M2 03-02 15:17
PROVIDERS: ADMIT Internal Medicine Interventional Cardiology
DX: I21.4 Non-ST elevation (NSTEMI) myocardial infarction (principal); I25.10 Atherosclerotic heart disease of native coronary artery without angina pectoris; Z00.6 Encounter for examination for normal comparison and control in clinical research program
CPT/HCPCS: 93458; C9600 ×2